=== PATIENT | male | born 1985 | race African-American/Black ===

== ENCOUNTER 2020-01-11 07:34 | Emergency (ER) | payer OTHER ==
[2020-01-11 07:52] VITALS: BMI 50.2
[2020-01-11] MEDS ORDERED: SODIUM CHLORIDE 1,000 ML IV STA (09:20)
--- NOTE | 2020-01-11 09:55 | PDOC ---
History of Present Illness - General Chief Complaint: Back Pain Stated Complaint: PAIN Time Seen by Provider: 01/11/20 09:10 History Source: Patient Exam Limitations: No Limitations - History of Present Illness Initial Comments: 01/11/20 09:48 Patient is a 34-year-old male who presents to the ED for complaint of worsening low back pain over the last 1 to 2 months and bilateral anterior rib pain for the last 1 week. He states he has had back pain for many years after having a football injury when he was younger. He states he would typically get back spasms but his pain is now different. He states the pain is primarily when he is walking and causes shooting pain down his right lower extremity. He admits to urinary incontinence x2 in the last 1 month. He also states that he has severe urinary urgency and must drive around with a bottle to urinate and as he has been unable to hold it. He denies any dysuria or hematuria. He denies any penile drainage. He denies any saddle anesthesia. He denies any fecal incontinence or retention. The patient states that about 1 week ago he began to have anterior chest wall/rib pain with certain movements. He states in the beginning of the year he had a biopsy of a left breast lump which was negative for malignancy. He has not had any issues since except for 1 week ago. He states the pain is primarily with movement and when he touches the area. He denies any shortness of breath or chest pain. He denies any recent long travel. He denies any history of DVT or PE. He states he has taken Tylenol and ibuprofen without any relief of his back pain. Past History - Medical History Allergies/Adverse Reactions: Allergies Allergy/AdvReac Type Severity Reaction Status Date / Time No Known Allergies Allergy Verified 01/11/20 07:46 COPD: No - Immunization History Immunization Up to Date: Yes - Psycho-Social/Smoking History Smoking History: Never smoked Information on smoking cessation initiated: No - Substance Abuse Hx (Audit-C & DAST Scrn) How often the patient has a drink containing alcohol: Never Score: In Men: 4 or > Positive; In Women: 3 or > Positive: 0 Screen Result (Pos requires Nsg. Audit-10AR): Negative Review of Systems - Review of Systems Comments:: 01/11/20 09:51 - Review of Systems Able to Perform ROS?: Yes Constitutional: No: Fever, Chills, Loss of Appetite, Night Sweats, Weakness HEENTM: No: Eye Pain, Vision changes, Ear Pain, Throat Pain, Throat Swelling, Mouth Pain, Difficulty Swallowing Respiratory: No: Cough, Shortness of Breath, Wheezing, Sputum Production Cardiac (ROS): No: Chest Pain, Chest Tightness, Palpitations, Irregular Heart Beat, Edema; positive: Anterior chest wall pain ABD/GI: No: Nausea, Vomiting, Abdominal Pain, Diarrhea : No Dysuria, No Hematuria, No Frequency, No Urgency, No Vaginal Discharge/Pain, No Penile Discharge/Pain Musculoskeletal: No: Muscle Pain, Joint Pain, Muscle Weakness, Neck Pain; positive: Lumbar back pain with urinary incontinence Integumentary: No: Lesions, Rash Neurological: No: Headache, Numbness, Tingling, Weakness, Speech Difficulties *Physical Exam - Vital Signs Last Vital Signs Temp Pulse Resp BP Pulse Ox 98.7 F 86 18 123/77 98 01/11/20 07:46 01/11/20 07:46 01/11/20 07:46 01/11/20 07:46 01/11/20 07:46 - Physical Exam 01/11/20 09:51 - Physical Exam General Appearance: Nourished, Appropriately Dressed, No Distress HEENT: EOMI, Normal Voice, Hearing Grossly Normal Neck: Supple, No Lymphadenopathy (R), No Lymphadenopathy (L), No Rigidity, No Decreased range of motion Respiratory/Chest: Lungs Clear, Normal Breath Sounds. No Respiratory Distress, No Accessory Muscle Use; good air entry bilaterally. No wheezes/rales/rhonchi Cardiovascular: Regular Rhythm, Regular Rate, S1, S2; reproducible anterior inferior chest wall pain along the ribs bilaterally. No abdominal tenderness to palpation. No step-off. No flail chest. Gastrointestinal/Abdominal: Normal Bowel Sounds, Soft. Non-tender, No Guarding, No Rebound, No Rigidity Musculoskeletal: Normal Inspection. No Decreased Range of Motion Extremity: Normal Capillary Refill, Normal Inspection Integumentary: Normal Color, Dry. 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 Strength 5/5 bilateral upper and lower extremities. No saddle anesthesia to light touch. Sensation intact to the bilateral lower extremities to light touch. EHL intact bilaterally. Patient has declined a rectal exam to evaluate rectal tone. ED Treatment Course - LABORATORY CBC & Chemistry Diagram: 01/11/20 10:00 01/11/20 10:00 - ADDITIONAL ORDERS Additional order review: 01/11/20 11:03 Laboratory Tests 01/11/20 10:00 Magnesium 1.8 Total Bilirubin 0.4 AST 24 ALT 47 Alkaline Phosphatase 142 H Creatine Kinase 563 H Creatine Kinase Index Pending CK-MB (CK-2) Pending Troponin I < 0.02 Total Protein 7.8 Albumin 3.7 - RADIOLOGY Radiology Studies Ordered: Category Date Time Status CHEST PA & LAT [RAD] Stat Radiology 01/11/20 09:20 Ordered SPINE-LUMBAR ONLY [RAD] Stat Radiology 01/11/20 09:21 Ordered Medical Decision Making - Medical Decision Making 01/11/20 09:55 Assessment: Patient is a 34-year-old male with worsening lower abdominal pain and urinary incontinence x2 over the last 1 month. He is also complaining of anterior chest wall pain. Plan: -Saline lock and labs ordered -1 L of NS ordered -Lumbar x-ray ordered -Chest x-ray ordered -EKG ordered -Patient will require an MRI of the lumbar spine to rule out cauda equina -Will reassess 01/11/20 11:01 Patient is lumbar spine x-ray shows L4 subluxation on L5 as per the radiology reading. Patient is pending MRI. 01/11/20 12:50 An MRI was attempted but the patient was unable to fit in our MRI machine. I have made the patient aware that secondary to this we must transfer him to a facility that would be able to accommodate him for an MRI for further evaluation. The patient understands this and transfer initiated. 01/11/20 13:10 [facility] is unable to accommodate the patient as there is scanner has a 350 pound maximum. [facility] contacted for possible transfer. 01/11/20 14:11 Discussed the case with [facility] emergency department and they state that they do not have an MRI that can accommodate the patient. Will try and page neurosurgery here for further assessment. 01/11/20 14:[address] Toro of neurosurgery and he suggests a CT lumbar spine at this time. He states to call him as soon as the CT is completed. 01/11/20 16:[address] scan has been completed and he is pending results. He is resting comfortably on a stretcher. 10 mg of dexamethasone has been given. 01/11/20 16:[address] Toro who will look at the CT scan and call back with his recommendation. The patient is resting comfortably on the stretcher. 01/11/20 17:[address] Guy who says that the CT scan appears complicated and the patient will require transfer for a CT myelogram secondary to need for further evaluation which we are unable to offer the patient here. CT myelogram is unavailable over the weekend here. Discussed this again with the transfer center at [facility] and they have initiated transfer. The patient has been accepted to Dr. Arredondo's service of neurosurgery. The patient understands and agrees with this transfer. Discharge - Discharge Information Problems reviewed: Yes Clinical Impression/Diagnosis: Cauda equina syndrome Condition: Stable - Follow up/Referral Referrals: Aarti Hillman MD, MD [Primary Care Provider] - - Patient Discharge Instructions - Post Discharge Activity - Transfer to Acute Care Facility Receiving Facility Name: [facility] [place] [address]
[2020-01-11 10:19] LABS: BASO % 0.3 % (0-2.0); EOS % 2.4 % (0-4.5); HEMATOCRIT 44.1 % (35.4-49); HEMOGLOBIN 15.2 GM/dL (11.7-16.9); LYMPH % 24.1 % (8-40); MCH 28.8 pg (25.7-33.7); MCHC 34.5 g/dl (32.0-35.9); MEAN CELL VOLUME 83.5 fl (80-96); MEAN PLT VOLUME 8.6 fl (7.5-11.1); MONO % 7.4 % (3.8-10.2); NEUT % 65.8 % (42.8-82.8); PLATELET COUNT 229 K/MM3 (134-434); RBC 5.29 M/mm3 (4.00-5.60); RDW 14.9 % (11.9-15.9); WHITE BLOOD COUNT 7.9 K/mm3 (4.0-10.0)
[2020-01-11 10:20] LABS: INR 1.13 (0.83-1.09); PROTHROMBIN TIME (PATIENT) 13.4 SEC (9.7-13.0)
[2020-01-11 10:22] LABS: ACTIVATED PTT 31.6 SECONDS (25.2-36.5)
[2020-01-11 10:54] LABS: ALBUMIN 3.7 g/dl (3.4-5.0); ALK PHOS 142 U/L (45-117); ANION GAP 7 MMOL/L (8-16); BILIRUBIN,TOTAL 0.4 mg/dL (0.2-1); CHLORIDE 106 mmol/L (98-107); CO2 28 mmol/L (21-32); CREATININE 1.1 mg/dL (0.55-1.3); GLUCOSE,RANDOM 80 mg/dL (74-106); MAGNESIUM 1.8 mg/dL (1.8-2.4); POTASSIUM 4.2 mmol/L (3.5-5.1); SGOT/AST 24 U/L (15-37); SGPT/ALT 47 U/L (13-61); SODIUM 140 mmol/L (136-145); TOT PROT 7.8 g/dl (6.4-8.2)
[2020-01-11] MEDS ORDERED: DEXAMETHASONE SOD PHOSPHATE 10 MG/1 ML VIAL IVPUSH ONE (12:51)
--- NOTE | 2020-01-11 14:56 | EKG ---
Test Reason : Blood Pressure : / mmHG Vent. Rate : 064 BPM Atrial Rate : 064 BPM P-R Int : 172 ms QRS Dur : 086 ms QT Int : 388 ms P-R-T Axes : 039 036 017 degrees QTc Int : 400 ms NORMAL SINUS RHYTHM NORMAL ECG NO PREVIOUS ECGS AVAILABLE Confirmed by Wei Jones ([id number]) on 01/11/2020 2:56:20 PM Referred By: Confirmed By:Wei Jones
[2020-01-11 19:19] VITALS: BP 162/103; PULSE 96; TEMP 98.6
== END 2020-01-11 19:19 | disposition short-term general hospital (02) ==
LOC: JER 07:34
PROC: 3E033GC Introduction of Other Therapeutic Substance into Peripheral Vein, Percutaneous Approach (ICD-10-PCS; principal; 2020-01-11)
PROC: 3E0337Z Introduction of Electrolytic and Water Balance Substance into Peripheral Vein, Percutaneous Approach (ICD-10-PCS; 2020-01-11)
DX: G83.4 Cauda equina syndrome (principal)
CPT/HCPCS: 36415; 71046-TC-FY; 72100-TC-FY; 72131-TC; 80053; 82550; 82553; 83735; 84484; 85025; 85379; 85610; 85730; 93005; 93010; 99285-25; J1100